=== PATIENT | female | born 2000 | race Caucasian/White ===

== ENCOUNTER 2023-02-12 12:15 | Outpatient (RCR) | payer OTHER, SELFPAY ==
--- NOTE | 2023-02-12 15:30 | OT.OP.EVAL ---
Visit Care Team Role Provider Type Edmundo Gonzales MD Attending Provider Non-Staff Family Provider Primary Care Provider Referring Provider Specialty: Orthopedic Surgery Address: [facility], [facility] [place] [place], [address] Fax: Email: Occupational Therapy Initial Evaluation OT Outpatient Adult Evaluation Start: 02/12/23 13:35 Freq: Status: Active Protocol: Document 02/12/23 15:30 AMS (Rec: 02/15/23 08:30 AMS [id number]) General Information - Adult Plan of Care Dates 02/12/23 - 04/09/23 Insurance Information Prime; EVAL CHARGE AT INITIAL VISIT; then 12 visits Visit Start Time 12:30 Visit Stop Time 13:15 Total Visit Minutes 45 Treatment Setting Outpatient Care Note Type Initial Evaluation Goals Short Term Goals 1. Tara will have increased ability to participate in and complete meaningful activities. This will be evidenced by: 1a. Improved pain-free active wrist range of motion; she will demonstrate 0-70 degrees active pain-free right wrist extension. 1b. Improved pain-free active wrist range of motion; she will demonstrate 0-10 degrees active pain-free right radial deviation. 1c. Improved right wrist strength; 5/5 MMT right wrist extension. 1d. Improved right wrist strength; 4/[address] 1e. Ability to verbally identify 2 to 3 different strategies to modify and/or adapt tools and/or her environment in the work place without support. [facility] Goals 1. Tara will be modified independent with execution of home exercise program utilizing provided written and visual instructions from therapist. Assessment/Plan Treatment Assessment Tara is a 22 y.o. right hand dominant female referred to outpatient OT secondary to chronic right wrist pain. Tara reported that pain presented over a year ago and that she has seen 4 different physicians to address the presenting problem; she reports that a MRI indicated that she has a cyst in the R wrist. Tara is being followed by an orthopedic upper extremity specialist w/ scheduled follow-up 02/19/23; surgery reportedly ruled out. She has previously seen a physical therapist who completed manual treatment(s) and instructed her in strengthening exercises. She has tried icing the wrist and wearing a brace which seems to 'worsen symptoms'. She is not taking the prescribed inflammatory medication. PMH = Insignificant; Health History Form completed. Tara is a full-time employee of [employer]; she does a variety of tasks, including welding, cutting wood using saw, and construction of materials. Pain Assessment Grid completed w/ indication of 6-7/10 on the pain scale relative to dorsal right wrist pain and dorsal right thumb. QuickDASH UE Outcome Measure Score = 56. 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 QuickDASH UE Work Module Score = 75.00 w/ severe difficulty completing all work based tasks. 0-60 degrees pain-free active right wrist ext; 0-35 degrees pain-free active right wrist flex; 0-5 degrees pain-free right wrist RD; 0-30 degrees pain-free active right wrist UD. 0-75 degrees active left wrist ext; 0-45 degrees active left wrist flex; 0-15 degrees active left wrist RD; 0-30 degrees active left wrist UD. MMT = 4/5 MMT R wrist flex; 5/ 5 MMT R wrist ext; 3/[address]; 5/5 R wrist UD. 5/5 MMT L wrist strength w/ flex, ext, RD, and UD. Tara presents w/ R wrist and thumb pain/discomfort, mild R wrist edema, decreased pain-free AROM of right wrist, decreased strength of the right wrist, and decreased ability to actively participate in and complete meaningful activities in a variety of environments, including the home, community and work environments. She has reportedly recently received outpatient services for this diagnosis with little success and is currently being seen by an orthopedic UE outpatient specialist. She has modified tasks in her work environment and utilizes her non-dominant left hand when able to do so. Thus, rehab potential is fair given lack of positive response/outcome from use of ice, inflammatory medication and brace. Home Exercise Program Instructed in modified prayer stretch; use of gravity for wrist flexion stretch. Instruction in contrast baths; starting and ending w/ heat. Length of treatment (weeks) 8 Plan of Care Start Date 02/12/23 Plan of Care End Date 04/09/23 Treatment Frequency Once a Week Comment 1 -2 times per wk; follow-up w / ortho surgeon 02/19 Therapeutic Contents Active Range of Motion, Adaptive Equipment Education, Client Education,Cognitive Skills Development,Functional Activities,Home Exercise Program,Joint Protection, Manual Therapy,Education, Neurodevelopment Treatment, Neuromuscular Re-Education, Self-Care,Stretching/ Flexibility Activities, Therapeutic Activities, Therapeutic Exercises, Modalities Modalities As Needed,As Prescribed Types of Modalities Contrast Bath,Ice Massage, Iontophoresis,T.E.N. Stimulation,TENS Placement/ Application,Ultrasound Additional Types of Modalities Ice/Heat/Paraffin Bath/ Contrast bath
--- NOTE | 2023-02-15 11:56 | OT.OP.EVAL ---
Visit Care Team Role Provider Type Edmundo Gonzales MD Attending Provider Non-Staff Family Provider Primary Care Provider Referring Provider Specialty: Orthopedic Surgery Address: [facility], [facility] [place], [address] Fax: Email: Occupational Therapy Initial Evaluation OT Outpatient Adult Evaluation Start: 02/12/23 13:35 Freq: Status: Active Protocol: Document 02/12/23 15:30 AMS (Rec: 02/15/23 08:30 AMS [id number]) General Information - Adult Plan of Care Dates 02/12/23 - 04/09/23 Insurance Information Prime; EVAL CHARGE AT INITIAL VISIT; then 12 visits Visit Start Time 12:30 Visit Stop Time 13:15 Total Visit Minutes 45 Treatment Setting Outpatient Care Note Type Initial Evaluation Goals Short Term Goals 1. Tara will have increased ability to participate in and complete meaningful activities. This will be evidenced by: 1a. Improved pain-free active wrist range of motion; she will demonstrate 0-70 degrees active pain-free right wrist extension. 1b. Improved pain-free active wrist range of motion; she will demonstrate 0-10 degrees active pain-free right radial deviation. 1c. Improved right wrist strength; 5/5 MMT right wrist extension. 1d. Improved right wrist strength; 4/[address] 1e. Ability to verbally identify 2 to 3 different strategies to modify and/or adapt tools and/or her environment in the work place without support. [facility] Goals 1. Tara will be modified independent with execution of home exercise program utilizing provided written and visual instructions from therapist. Assessment/Plan Treatment Assessment Tara is a 22 y.o. right hand dominant female referred to outpatient OT secondary to chronic right wrist pain. Tara reported that pain presented over a year ago and that she has seen 4 different physicians to address the presenting problem; she reports that a MRI indicated that she has a cyst in the R wrist. Tara is being followed by an orthopedic upper extremity specialist w/ scheduled follow-up 02/19/23; surgery reportedly ruled out. She has previously seen a physical therapist who completed manual treatment(s) and instructed her in strengthening exercises. She has tried icing the wrist and wearing a brace which seems to 'worsen symptoms'. She is not taking the prescribed inflammatory medication. PMH = Insignificant; Health History Form completed. Tara is a full-time employee of [employer]; she does a variety of tasks, including welding, cutting wood using saw, and construction of materials. Pain Assessment Grid completed w/ indication of 6-7/10 on the pain scale relative to dorsal right wrist pain and dorsal right thumb. QuickDASH UE Outcome Measure Score = 56. 82 w/ indication of severe difficulty w/ completion of heavy household personal assistant and participation in recreational activities. QuickDASH UE Work Module Score = 75.00 w/ severe difficulty completing all work based tasks. 0-60 degrees pain-free active right wrist ext; 0-35 degrees pain-free active right wrist flex; 0-5 degrees pain-free right wrist RD; 0-30 degrees pain-free active right wrist UD. 0-75 degrees active left wrist ext; 0-45 degrees active left wrist flex; 0-15 degrees active left wrist RD; 0-30 degrees active left wrist UD. MMT = 4/5 MMT R wrist flex; 5/ 5 MMT R wrist ext; 3/[address]; 5/5 R wrist UD. 5/5 MMT L wrist strength w/ flex, ext, RD, and UD. Tara presents w/ R wrist and thumb pain/discomfort, mild R wrist edema, decreased pain-free AROM of right wrist, decreased strength of the right wrist, and decreased ability to actively participate in and complete meaningful activities in a variety of environments, including the home, community and work environments. She has reportedly recently received outpatient services for this diagnosis with little success and is currently being seen by an orthopedic UE outpatient specialist. She has modified tasks in her work environment and utilizes her non-dominant left hand when able to do so. Thus, rehab potential is fair given lack of positive response/outcome from use of ice, inflammatory medication and brace. Home Exercise Program Instructed in modified prayer stretch; use of gravity for wrist flexion stretch. Instruction in contrast baths; starting and ending w/ heat. Length of treatment (weeks) 8 Plan of Care Start Date 02/12/23 Plan of Care End Date 04/09/23 Treatment Frequency Once a Week Comment 1 -2 times per wk; follow-up w / ortho surgeon 02/19 Therapeutic Contents Active Range of Motion, Adaptive Equipment Education, Client Education,Cognitive Skills Development,Functional Activities,Home Exercise Program,Joint Protection, Manual Therapy,Education, Neurodevelopment Treatment, Neuromuscular Re-Education, Self-Care,Stretching/ Flexibility Activities, Therapeutic Activities, Therapeutic Exercises, Modalities Modalities As Needed,As Prescribed Types of Modalities Contrast Bath,Ice Massage, Iontophoresis,T.E.N. Stimulation,TENS Placement/ Application,Ultrasound Additional Types of Modalities Ice/Heat/Paraffin Bath/ Contrast bath
--- NOTE | 2023-04-12 14:17 | OT.OP.DC ---
Visit Care Team Role Provider Type Edmundo Gonzales MD Attending Provider Non-Staff Family Provider Primary Care Provider Referring Provider Address: [facility], [facility], [address] Fax: Email: OT Outpatient OT Outpatient Adult Evaluation Start: 02/12/23 13:35 Freq: Status: Active Protocol: Document 02/12/23 15:30 AMS (Rec: 02/15/23 08:30 AMS [id number]) General Information - Adult Visit Information Plan of Care Dates 02/12/23 - 04/09/23 Insurance Information Prime; EVAL CHARGE AT INITIAL VISIT; then 12 visits; Session Time Visit Start Time 12:30 Visit Stop Time 13:15 Total Visit Minutes 45 Setting Treatment Setting Outpatient Care Visit Type Note Type Initial Evaluation Goals Short Term Goals Short Term Goals 1. Tara will have increased ability to participate in and complete meaningful activities. This will be evidenced by: 1a. Improved pain-free active wrist range of motion; she will demonstrate 0-70 degrees active pain-free right wrist extension. 1b. Improved pain-free active wrist range of motion; she will demonstrate 0-10 degrees active pain-free right radial deviation. 1c. Improved right wrist strength; 5/5 MMT right wrist extension. 1d. Improved right wrist strength; 4/[address] 1e. Ability to verbally identify 2 to 3 different strategies to modify and/or adapt tools and/or her environment in the work place without support. Residential Goals [employer] Goals 1. Tara will be modified independent with execution of home exercise program utilizing provided written and visual instructions from therapist. Assessment/Plan Assessment Treatment Assessment Tara is a 22 y.o. right hand dominant female referred to outpatient OT secondary to chronic right wrist pain. Tara reported that pain presented over a year ago and that she has seen 4 different physicians to address the presenting problem; she reports that a MRI indicated that she has a cyst in the R wrist. Tara is being followed by an orthopedic upper extremity specialist w/ scheduled follow-up 02/19/23; surgery reportedly ruled out. She has previously seen a physical therapist who completed manual treatment(s) and instructed her in strengthening exercises. She has tried icing the wrist and wearing a brace which seems to 'worsen symptoms'. She is not taking the prescribed inflammatory medication. PMH = Insignificant; Health History Form completed. Tara is a full-time employee of [employer]; she does a variety of tasks, including welding, cutting wood using saw, and construction of materials. Pain Assessment Grid completed w/ indication of 6-7/10 on the pain scale relative to dorsal right wrist pain and dorsal right thumb. QuickDASH UE Outcome Measure Score = 56. 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 QuickDASH UE Work Module Score = 75.00 w/ severe difficulty completing all work based tasks. 0-60 degrees pain-free active right wrist ext; 0-35 degrees pain-free active right wrist flex; 0-5 degrees pain-free right wrist RD; 0-30 degrees pain-free active right wrist UD. 0-75 degrees active left wrist ext; 0-45 degrees active left wrist flex; 0-15 degrees active left wrist [address]; 0-30 degrees active left wrist UD. MMT = 4/5 MMT R wrist flex; 5/ 5 MMT R wrist ext; 3/[address]; 5/5 R wrist UD. 5/5 MMT L wrist strength w/ flex, ext, RD, and UD. Tara presents w/ R wrist and thumb pain/discomfort, mild R wrist edema, decreased pain-free AROM of right wrist, decreased strength of the right wrist, and decreased ability to actively participate in and complete meaningful activities in a variety of environments, including the home, community and work environments. She has reportedly recently received outpatient services for this diagnosis with little success and is currently being seen by an orthopedic UE outpatient specialist. She has modified tasks in her work environment and utilizes her non-dominant left hand when able to do so. Thus, rehab potential is fair given lack of positive response/outcome from use of ice, inflammatory medication and brace. Home Exercise Program Instructed in modified prayer stretch; use of gravity for wrist flexion stretch. Instruction in contrast baths; starting and ending w/ heat. Plan Length of treatment (weeks) 8 Plan of Care Start Date 02/12/23 Plan of Care End Date 04/09/23 Treatment Frequency Once a Week Comment 1 -2 times per wk; follow-up w / ortho surgeon 02/19 Therapeutic Contents Active Range of Motion, Adaptive Equipment Education, Client Education,Cognitive Skills Development,Functional Activities,Home Exercise Program,Joint Protection, Manual Therapy,Education, Neurodevelopment Treatment, Neuromuscular Re-Education, Self-Care,Stretching/ Flexibility Activities, Therapeutic Activities, Therapeutic Exercises, Modalities Modalities As Needed,As Prescribed Types of Modalities Contrast Bath,Ice Massage, Iontophoresis,T.E.N. Stimulation,TENS Placement/ Application,Ultrasound Additional Types of Modalities Ice/Heat/Paraffin Bath/ Contrast bath Functional Wrist/Hand Scan Hand Side Sensory Assessment Sensory Profile2 OT Outpatient Treatment Note - Adult Start: 02/12/23 13:35 Freq: Status: Active Protocol: Document 04/12/23 14:14 [facility] (Rec: 04/12/23 14:16 [facility] [id number]) OT Outpatient Adult Treatment Note Visit Information Plan of Care Dates 02/12/23 - 04/09/23 Insurance Information Prime; EVAL CHARGE AT INITIAL VISIT; then 12 visits; Setting Treatment Setting Outpatient Care Visit Type Note Type Discharge Summary General Information General Information Tara is a 22 y.o. right hand dominant female referred to outpatient OT secondary to chronic right wrist pain. Tara reported that pain presented over a year ago and that she has seen 4 different physicians to address the presenting problem; she reports that a MRI indicated that she has a cyst in the R wrist. Tara is being followed by an orthopedic upper extremity specialist w/ scheduled follow-up 02/19/23; surgery reportedly ruled out. She has previously seen a physical therapist who completed manual treatment(s) and instructed her in strengthening exercises. She has tried icing the wrist and wearing a brace which seems to 'worsen symptoms'. She is not taking the prescribed inflammatory medication. PMH = Insignificant; Health History Form completed. - Subjective Observations Tara has not been seen by outpatient OT since time of initial eval (02/12/23) and POC on 04/09/23. Thus, recommend d/c from outpatient OT at this time. - Objective Short Term Goals ALL GOALS D/C 04/12/23 1. Tara will have increased ability to participate in and complete meaningful activities. This will be evidenced by: 1a. Improved pain-free active wrist range of motion; she will demonstrate 0-70 degrees active pain-free right wrist extension. 1b. Improved pain-free active wrist range of motion; she will demonstrate 0-10 degrees active pain-free right radial deviation. 1c. Improved right wrist strength; 5/5 MMT right wrist extension. 1d. Improved right wrist strength; 4/[address] 1e. Ability to verbally identify 2 to 3 different strategies to modify and/or adapt tools and/or her environment in the work place without support. [employer] Goals ALL GOALS D/C 04/12/23 1. Tara will be modified independent with execution of home exercise program utilizing provided written and visual instructions from therapist. - - Assessment Assessment of Improvement Tara has not been seen by outpatient OT since time of initial eval (02/12/23) and POC on 04/09/23. Thus, recommend d/c from outpatient OT at this time. - Plan Therapy Recommendations Discharge from Occupational Therapy
== END 2023-04-14 15:46 | disposition home or self-care (01) ==
LOC: OT 12:15
PROVIDERS: Family Provider Orthopaedic Surgery; PCP Orthopaedic Surgery; Referring Provider Orthopaedic Surgery; Visit Provider Orthopaedic Surgery
DX: M25.531 Pain in right wrist (principal); R53.1 Weakness
CPT/HCPCS: 97165